=== PATIENT | female | born 1980 | race Two or more races ===

== ENCOUNTER 2024-09-25 10:58 | Day surgery (SDC) | payer OTHER, SELFPAY ==
--- OUTSIDE RECORDS SUMMARY | 2024-09-18 15:29 | XMS_ITS | Clinical Summary ---
Author Organization [facility] Address [address] [place] [address] Care Team Providers Care Hotel Attendant Name Role Phone Eliel Larson STEFANIE Primary Care Provider [phone] Source Comments PLEASE NOTE, if this patient is a minor, it may be UNLAWFUL to discuss sensitive information that is contained in these records (such as FAMILY PLANNING, MENTAL HEALTH or SUBSTANCE ABUSE) with the minor patient's parent or other person without the patient's specific authorization.[facility] Social History Tobacco Use Types Packs/Day Years Used Date Smoking Tobacco: Never Assessed Comments Unknown Sex and Gender Information Value Date Recorded Sex Assigned at Not on file Legal Sex Female 6:50 AM PDT Gender Identity Not on file Sexual Orientation Not on file Last Filed Vital Signs Vital Sign Reading Time Taken Comments Blood Pressure - - Pulse - - Temperature - - Respiratory Rate - - Oxygen Saturation - - Inhaled Oxygen Concentration - - Weight 58.5 kg (129 lb) 05/16/2013 12:29 PM EDT Height 152.4 cm (5') 05/16/2013 12:29 PM EDT Body Mass Index 25.19 05/16/2013 12:29 PM EDT Plan of Treatment Not on file Insurance [place] [facility] [employer] Member Subscriber Plan / Payer (Ef fective 2013-Present) Name:Mireya Shah Relation to Subscriber:Self Name:Mireya Shah Payer ID:[id number] Group ID:[id number] Type:Medicaid Address: [facility] [address] [place] [address] Care Teams Hotel Attendant Relationship Specialty Start Date End Date Eliel Larson [address] [place] [address] PCP - General Nutrition 05/16/13
--- OUTSIDE RECORDS SUMMARY | 2024-09-18 15:29 | XMS_ITS | Clinical Summary ---
Author Organization [facility] Address [address] [place] [address] Phone Care Team Providers Care Dental Practitioner Name Role Phone Vinnie Youssef MD Primary Care Provider [phone] Allergies Active Allergy Reactions Criticality Noted Date Comments Metoclopramide 05/13/2024 Other Reaction(s): CHRONIC DIZZINESS Medications clotrimazole-be tamethasone (LOTRISONE) 1-0.05 % cream Apply to area sparingly twice a day for up to two weeks 3 Active OMEPRAZOLE ORAL Take 20 capsules by mouth daily. Active Ventolin HFA 90 mcg/actuation inhaler Inhale 2 puffs by mouth every 6 (six) hours if needed for wheezing. 4 Active fluoride, sodium, 1.1 % gel 5 Active fluticasone propionate (FLONASE) 50 mcg/actuation nasal spray Administer 1 spray into each nostril 2 (two) times a day. SHAKE LIQUID Active loratadine (CLARITIN) 10 mg tablet Take 1 tablet (10 mg total) by mouth 1 (one) time each day. Active Essential Woman 50 Plus 0.4-250 mg-mcg tablet TAKE 1 TABLET BY MOUTH EVERY DAY. TAKE WITH FOOD 5 Active cholecalciferol (VITAMIN D-3) 50 mcg (2,000 unit) capsule Take 1 capsule (2,000 Units total) by mouth 1 (one) time each day. 90 capsule 3 5 Active Active Problems Problem Noted Date Diagnosed Date Gastroesophageal reflux disease 05/13/2024 Gastroparesis 05/13/2024 Overview (05/13/2024): 21% - moderate gastric retention per swallowing study 2012 Prediabetes 05/13/2024 Strabismus 05/13/2024 Overview (05/13/2024): Since childhood. Had corrective surgery at age 10, but later recurred at age 26. Migraine 07/13/2005 Immunizations Name Administration Dates Next Due Influenza trivalent, with pr eservative (Fluzone; Afluria) 6mo and older 01/31/2006 Td, Unspecified 01/09/2007 Tdap Tetanus diptheria acell ular pertussis (Boostrix; Adacel) 7yo and older 08/03/2016 Surgical History Surgery Date Site/Laterality Comments SECTION PROCEDURE: HISTORICAL DELIVERY Medical History Medical History Date Comments History of vitamin D deficiency DX:History of vitamin D deficiency GERD (gastroesophageal reflux disease) Family History Medical History Relation Name Comments Hypertension Father Breast cancer Neg Hx Colon cancer Neg Hx Kidney cancer Neg Hx Ovarian cancer Neg Hx Pancreatic cancer Neg Hx Prostate cancer Neg Hx Uterine cancer Neg Hx Relation Name Status Comments Father Alive Mother Alive Social History Tobacco Use Types Packs/Day Years Used Date Smoking Tobacco: Never Smokeless Tobacco: Never Alcohol Use Standard Drinks/Week Comments No 0 (1 standard drink = 0.6 oz pur e alcohol) Comments No Sex and Gender Information Value Date Recorded Sex Assigned at Female 05/14/2024 11:37 AM EDT Legal Sex Female 4:27 AM EST Gender Identity Female 05/14/2024 11:37 AM EDT Sexual Orientation Straight 05/14/2024 11 :37 AM EDT Obstetrics History Para Term AB IAB SAB Ectopic Multiple Livin g Live Births 3 2 2 1 1 2 2 Date Outcome GA Total Labor Labor/2nd/3rd Weight Sex Type Anes PTL Sylvie A1 A5 Name Clin 1996 Term M CS-Un spec Living 2001 SAB 2007 Term M CS-Un spec Living Last Filed Vital Signs Vital Sign Reading Time Taken Comments Blood Pressure 125/82 05/13/2024 9:52 AM EDT Pulse 93 05/13/2024 9:52 AM EDT Temperature 36.9 C (98.4 F) 03/02/2024 4:51 PM EST Respiratory Rate 16 03/02/2024 4:51 PM EST Oxygen Saturation 100% 03/02/2024 4:51 PM EST Inhaled Oxygen Concentration - - Weight 65.8 kg (145 lb) 05/23/2024 9:02 AM EDT Height 152.4 cm (5') 05/23/2024 9:02 AM EDT Body Mass Index 28.32 05/23/2024 9:02 AM EDT Plan of Treatment Health Maintenance Due Date Last Done Comments Hepatitis B Vaccines (1 of 3 - 19+ 3-dose series) 1997 Colorectal Cancer Screening: Colonoscopy 02/06/2022 Depression Screening 02/06/2022 Social Influencers of Health Screening 02/06/2022 COVID-19 Vaccine ( season) 2023 04/07/2021, 06/12/2020 Influenza Vaccine (#1) 2024 01/31/2006 Cervical Cancer Screening: Pap Smear 11/15/2025 11/15/2022, 11/15/2021 Breast Cancer Screening 05/23/2026 05/24/19, 08/08/2022, 08/04/2021, Additional history exists DTaP,Tdap,and Td Vaccines (3 - Td or Tdap) 08/03/2026 08/03/2016, 01/09/2007 HIV Screening Completed 06/29/2018 Hepatitis C Screening Completed 06/29/2018 HIB Vaccines Aged Out No longer eligi ble based on patient's age to complete this topic HPV Vaccines Aged Out No longer eligi ble based on patient's age to complete this topic Hepatitis A Vaccines Aged Out No long er eligible based on patient's age to complete this topic IPV Vaccines Aged Out No longer eligi ble based on patient's age to complete this topic MMR Vaccines Aged Out No longer eligi ble based on patient's age to complete this topic Meningococcal ACWY Vaccine Aged Out N o longer eligible based on patient's age to complete this topic Meningococcal B Vaccine Aged Out No l onger eligible based on patient's age to complete this topic Pneumococcal Vaccine: Pediatrics (0 to 5 Years) and At-Risk Patients (6 to 49 Years) Aged Out No longer eligible based on patient's age to complete this topic RSV Immunization Patients Under 20 months Aged Out No longer eligible based on patient's age to complete this topic Varicella Vaccines Aged Out No longer eligible based on patient's age to complete this topic Procedures Procedure Name Priority Date/Time Associated Diagnosis Comments MG MAMMO DIGITAL SCREENING W MINA BILAT Routine 05/23/2024 9:55 AM EDT Encounter for screening mammogram for malignant neoplasm of breast PAP SMEAR Routine 11/15/2022 HEPATITIS C SCREENING Routine 06/29/2018 HIV SCREENING Routine 06/29/2018 from Last 3 Months or Most Recently Relevant to Health Maintenance Results * MG Mammo Digital Screening w Mina bilat (05/23/2024 9:55 AM EDT) Anatomical Region Laterality Modality Breast Bilateral Mammography 05/23/2024 9:59 AM EDT Impressions 05/23/2024 10:01 AM EDT No evidence of breast malignancy. BI-RADS CATEGORY: 1 - NEGATIVE RECOMMENDATION: Screening bilateral mammogram is recommended in 1 year. Mammo Location: [facility], [address] [place] [address], [facility], . -------- FINAL REPORT -------- Dictated By: Ena Meza Dictated Date: 05/23/2024 09:59 ET Assigned Physician: Ena Meza Reviewed and Electronically Signed By: Ena Meza Signed Date: 05/23/2024 10:01 ET Workstation ID: [id number] Transcribed By: Self Edit Transcribed Date: 05/23/2024 09:59 ET Narrative 05/23/2024 10:01 AM EDT CLINICAL: 43 years old, Female, routine annual exam. COMPARISON: 08/08/2022, 08/04/2021, 07/31/2020 and 12/17/2018 TECHNIQUE: Bilateral MLO and CC views were obtained digitally with 3-D mammogram (digital breast tomosynthesis). Computer-aided detection was utilized in evaluation of this exam (CAD). FINDINGS: There is no evidence of suspicious mass or architectural distortion. No worrisome calcifications are evident. There has been no significant change from prior exam(s). BREAST DENSITY: B - There are scattered areas of fibroglandular density. Procedure Note Ena Meza MD - 05/23/2024 CLINICAL: 43 years old, Female, routine annual exam. COMPARISON: 08/08/2022, 08/04/2021, 07/31/2020 and 12/17/2018 TECHNIQUE: Bilateral MLO and CC views were obtained digitally with 3-Dmammogram (digital breast tomosynthesis). Computer-aided detection wasutilized in evaluation of this exam (CAD). FINDINGS: There is no evidence of suspicious mass or architectural distortion. Noworrisome calcifications are evident. There has been no significantchange from prior exam(s). BREAST DENSITY: B - There are scattered areas of fibroglandular density. IMPRESSION: No evidence of breast malignancy. BI-RADS CATEGORY: 1 - NEGATIVE RECOMMENDATION: Screening bilateral mammogram is recommended in 1 year. Mammo Location: [facility], [address] [place] [address], [id number], . -------- FINAL REPORT -------- Dictated By: Ena Meza Dictated Date: 05/23/2024 09:59 ET Assigned Physician: Ena Meza Reviewed and Electronically Signed By: Ena Meza Signed Date: 05/23/2024 10:01 ET Workstation ID: [id number] Transcribed By: Self Edit Transcribed Date: 05/23/2024 09:59 ET Danielle Emmanuel CNM IMG BI PROCEDURES Final Res ult * Pap Smear (11/15/2022) Pathologist [facility] Pap smear NO INTERPRETATION , ABSTRACTED Historical Provider HEALTH MAINTENANCE Final Result * HIV Screening (06/29/2018) [facility] HIV Screening ABSTRACTED Historical Provider HEALTH MAINTENANCE Final Result * Hepatitis C Screening (06/29/2018) [facility] Hepatitis C Screening ABSTRACTED us Historical Provider HEALTH MAINTENANCE Final Result from Last 3 Months or Most Recently Relevant to Health Maintenance Insurance [employer] [place] [employer] Care Teams Dental Practitioner Relationship Specialty Start Date End Date Vinnie Youssef MD [address] [place] [phone] PCP - General Internal Medicine 11/15/21
[2024-09-19 08:48] VITALS: BMI 28.8
[2024-09-25] VITALS (7 sets, daily range): BP systolic 118–143; BP diastolic 74–80; PULSE 95–126; RESP 16–18; TEMP 36.5–37; O2SAT 99–100; BMI 28.7
[2024-09-25] MEDS: Lactated Ringers 1,000 ML 100 ML IVCONT (11:08)
[2024-09-25 11:21] LABS: UPreg QC Valid YES
--- NOTE | 2024-09-25 12:34 | HO.ANESPROP2 ---
HPI - Anesthesia Eval Consult details Narrative: 43 yo F presenting for bilateral eye muscle surgery [facility] Past Medical History Medical History Vertigo Fibromyalgia Strabismus Low back pain Pre-diabetes Depression Migraines Hemorrhoids Gastroparesis GERD (gastroesophageal reflux disease) Family History Family history of problems with anesthesia: No Surgical History Surgical History History of esophagogastroduodenoscopy (EGD) (2012) History of Problems with Anesthesia: No Social History Social History (Updated 08/10/23 @ 14:18 by Madelyn Rangel RN) Are you a primary anesthesiologist and critical care to a significant other at home: No Do you presently have visiting nurse or other home services: No Patient Tobacco Use Status: Never used Tobacco Have you been hit, kicked, punched, or otherwise hurt by someone within the past year? If so, by whom?: No Are you DNR?: No Advance Directives: No Advance Directives Information Provided: Yes Patient : No Meds Allergies Allergy/AdvReac Type Severity Reaction Status Date / Time metoclopramide Allergy Intermediate Chronic Verified 09/25/24 12:05 Dizziness Active Medications: Current Medications Lactated Ringer's (Lr) 1,000 mls @ 100 mls/hr IVCONT .Q10H AGUILA Last Admin: 09/25/24 11:08 Dose: 100 mls/hr Home Medications ?Medication ?Instructions ?Recorded ?Confirmed ?Last Taken ?Type albuterol sulfate 90 mcg/actuation 2 puff inhalation Q4-6H PRN 08/10/23 09/19/24 Unknown History aerosol inhaler (Ventolin HFA) Shortness Of Breath Or Wheezing cholecalciferol (vitamin D3) 50 50 mcg PO DAILY 08/10/23 09/19/24 Unknown History mcg (2,000 unit) capsule (Vitamin D3) loratadine 10 mg tablet 10 mg PO DAILY 08/10/23 09/19/24 Unknown History multivitamin 1 tab PO DAILY 08/10/23 09/25/24 Unknown History omeprazole 20 mg delayed 20 mg PO DAILY 08/10/23 09/19/24 09/25/24 History release,disintegrating tablet acetaminophen 325 mg tablet 650 mg PO TID PRN fever 09/19/24 09/19/24 Unknown History fluticasone propionate 50 1 spray intranasal BID 09/19/24 09/19/24 Unknown History mcg/actuation nasal spray,suspension Exam Exam Date and Time: 09/25/24 1220 Height,Weight and Vital Signs: Height 5 ft Weight 66.678 kg Last Vital Signs Temp 98.0 F 09/25/24 12:11 Pulse 100 09/25/24 12:11 Resp 18 09/25/24 12:11 BP 123/77 09/25/24 12:11 Pulse Ox 99 09/25/24 12:11 O2 Del Method Room Air 09/25/24 12:11 Pertinent Lab Results Pertinent Lab Results: Laboratory Tests 09/25/24 10:30 Urine Test NEGATIVE Airway Mallampati Class: II TM Dist: >3cm Neck ROM: Full Loose/Missing/Broken Teeth: No (patient denies any loose or broken teeth) Heart: S1S2 Lungs: CTAB Assessment and Plan Assessment Anesthesia Assessment: Anesthesia Plan Discussed and Chart Reviewed Final Anesthetic Review Family History of Problems with Anesthesia: No History of Problems with Anesthesia: No NPO: Yes ASA Class: II Final Preanesthetic Review: No Changes in Pt Med Stat, Meds/Allgs Chart Reviewed, Consent Obtained/Reviewed (educational sign language interpreter at bedside for translation) and Anes Risks/Benef Reviewed Patient Risk: Low Procedure Risk: Low Anesthetic Plan Anesthetic Plan: GA and Agree w/ Assess. and Plan Disposition: Standard PACU
--- NOTE | 2024-09-25 13:46 | HO.OPHTHAL ---
Ophthalmology Operative Note Date of Service: 09/25/24 Narrative: Diagnosis V pattern exotropia. Postoperative diagnosis same. Procedures 1. Bilateral lateral rectus recessions of 6 mm 2. Transposition of both lateral rectus superiorly half a tendon width. Surgeon Dr. Jim. Anesthesia general. Complications none. The patient was brought to the operative room placed under general anesthesia. The eyes were prepped and draped in the usual sterile ophthalmic fashion. A lid speculum was placed in the right eye and a peritomy was created around the lateral rectus. The muscle was hooked and secured with a double-armed Vicryl suture. It was disinserted from the globe and reattached to a position 6 mm posterior and 1/2 a tendon width superior to the original insertion. Conjunctiva was closed with interrupted Vicryl sutures. An identical procedure was then performed in the left eye. The patient was then awoken from general anesthesia and discharged to postoperative recovery in good condition.
== END 2024-09-25 15:28 | disposition home or self-care (01) ==
PROVIDERS: PCP Internal Medicine; Visit Provider Ophthalmology
PROC: (CPT 67311; principal; 2024-09-25 14:00)
DX: H50.15 Alternating exotropia (principal); M79.7 Fibromyalgia; G43.909 Migraine, unspecified, not intractable, without status migrainosus; R73.03 Prediabetes; K31.84 Gastroparesis; R42 Dizziness and giddiness; Z79.899 Other long term (current) drug therapy; Z88.8 Allergy status to other drugs, medicaments and biological substances
CPT/HCPCS: 67311; 67320; 81025; J1100; J1596; J1885; J2003; J2405; J2704; J3010